=== PATIENT | female | born 1990 | race Native Hawaiian/Other Pacific Islander ===

== ENCOUNTER 2019-08-14 00:22 | Emergency (ER) | payer OTHER ==
[~2019-08-14] VITALS: Ht 160 cm; Wt 74.8 kg
[2019-08-14 02:05] VITALS: BP 129/86; TEMP 97.5
== END 2019-08-14 02:11 | disposition home or self-care (01) ==
LOC: ED 00:22
DX: J45.909 Unspecified asthma, uncomplicated (principal); J18.9 Pneumonia, unspecified organism; F17.210 Nicotine dependence, cigarettes, uncomplicated
CPT/HCPCS: 87502; 94664; 96372; 99283; J0696; J2930

== ENCOUNTER 2020-04-04 14:14 | Emergency (ER) | payer OTHER ==
[~2020-04-04] VITALS: Ht 160 cm; Wt 56.7 kg
[2020-04-04 14:27] VITALS: TEMP 98.7
[2020-04-04 15:17] VITALS: BP 118/70
== END 2020-04-04 15:18 | disposition home or self-care (01) ==
LOC: ED 14:14
DX: H60.8X1 Other otitis externa, right ear (principal)
CPT/HCPCS: 96372; 99282; J1885

== ENCOUNTER 2020-08-07 21:44 | Emergency (ER) | payer OTHER ==
[~2020-08-07] VITALS: Ht 160 cm; Wt 56.7 kg
[2020-08-07 23:29] VITALS: BP 117/58; TEMP 98.2
== END 2020-08-07 23:29 | disposition home or self-care (01) ==
LOC: ED 21:44
DX: J02.0 Streptococcal pharyngitis (principal); N39.0 Urinary tract infection, site not specified; F17.210 Nicotine dependence, cigarettes, uncomplicated
CPT/HCPCS: 81000; 87490; 87590; 87651; 99283

== ENCOUNTER 2020-09-15 13:45 | Emergency (ER) | payer OTHER ==
[~2020-09-15] VITALS: Ht 160 cm; Wt 56.7 kg
[2020-09-15 13:55] VITALS: TEMP 98.4
[2020-09-15 14:28] VITALS: BP 110/59
== END 2020-09-15 14:29 | disposition home or self-care (01) ==
LOC: ED 13:45
DX: H65.192 Other acute nonsuppurative otitis media, left ear (principal); F17.210 Nicotine dependence, cigarettes, uncomplicated
CPT/HCPCS: 99282

== ENCOUNTER 2020-09-18 22:56 | Emergency (ER) | payer OTHER ==
[~2020-09-18] VITALS: Ht 160 cm; Wt 54.4 kg
[2020-09-18 23:45] VITALS: BP 108/53; TEMP 98.6
== END 2020-09-18 23:45 | disposition home or self-care (01) ==
LOC: ED 22:56
DX: J30.89 Other allergic rhinitis (principal); R51.9 Headache, unspecified; F17.210 Nicotine dependence, cigarettes, uncomplicated
CPT/HCPCS: 99282

== ENCOUNTER 2020-10-03 23:51 | Emergency (ER) | payer OTHER ==
[~2020-10-03] VITALS: Ht 160 cm; Wt 54.4 kg
[2020-10-04 01:15] LABS: PLATELET COUNT 290 K/uL (152-353)
[2020-10-04 01:21] LABS: POTASSIUM 3.7 mmol/L (3.6-5.2)
[2020-10-04 03:15] VITALS: BP 102/66; TEMP 97.6
== END 2020-10-04 03:15 | disposition home or self-care (01) ==
LOC: ED 23:51
PROVIDERS: Emergency Medicine Emergency Medical Services
DX: A08.39 Other viral enteritis (principal)
CPT/HCPCS: 80053; 81000; 83690; 85027; 96360; 96375; 99284; J1885; J2405

== ENCOUNTER 2020-11-19 21:00 | Emergency (ER) | payer OTHER ==
[~2020-11-19] VITALS: Ht 160 cm; Wt 54.4 kg
[2020-11-19 22:12] VITALS: BP 156/100; TEMP 98
== END 2020-11-19 22:12 | disposition home or self-care (01) ==
LOC: ED 21:00
DX: M54.2 Cervicalgia (principal)
CPT/HCPCS: 99282

== ENCOUNTER 2020-12-08 22:13 | Emergency (ER) | payer OTHER ==
[~2020-12-08] VITALS: Ht 160 cm; Wt 51.7 kg
[2020-12-08 23:00] VITALS: BP 113/78; TEMP 98.2
== END 2020-12-08 23:47 | disposition home or self-care (01) ==
LOC: ED 22:13
DX: R05 Cough (principal); Z53.21 Procedure and treatment not carried out due to patient leaving prior to being seen by health care provider
CPT/HCPCS: 99281

== ENCOUNTER 2020-12-15 04:09 | Emergency (ER) | payer OTHER ==
[~2020-12-15] VITALS: Ht 160 cm; Wt 54.4 kg
[2020-12-15 05:49] LABS: PLATELET COUNT 261 K/uL (152-353)
[2020-12-15 05:58] LABS: POTASSIUM 4.4 mmol/L (3.6-5.2)
[2020-12-15 06:45] VITALS: BP 110/68; TEMP 98
== END 2020-12-15 06:45 | disposition home or self-care (01) ==
LOC: ED 04:09
PROVIDERS: Family Medicine
DX: K08.89 Other specified disorders of teeth and supporting structures (principal); K04.7 Periapical abscess without sinus; J06.9 Acute upper respiratory infection, unspecified; F17.210 Nicotine dependence, cigarettes, uncomplicated
CPT/HCPCS: 36415; 80053; 85027; 87502; 99283

== ENCOUNTER 2021-01-09 00:47 | Emergency (ER) | payer OTHER | END 2021-01-09 02:41 | disposition home or self-care (01) | LOC: ED 00:47 | DX: Z53.21 Procedure and treatment not carried out due to patient leaving prior to being seen by health care provider (principal); R51.9 Headache, unspecified; M54.2 Cervicalgia; R07.89 Other chest pain | CPT/HCPCS: 99281 ==

== ENCOUNTER 2021-01-17 04:38 | Emergency (ER) | payer OTHER | END 2021-01-17 06:05 | disposition home or self-care (01) | LOC: ED 04:38 | DX: M79.18 Myalgia, other site (principal); S40.021A Contusion of right upper arm, initial encounter; Y04.2XXA Assault by strike against or bumped into by another person, initial encounter; W22.8XXA Striking against or struck by other objects, initial encounter; Y92.89 Other specified places as the place of occurrence of the external cause | CPT/HCPCS: 96372; 99283; J1885 ==

== ENCOUNTER 2021-01-30 10:53 | Outpatient (CLI) | payer OTHER | END 2021-01-30 21:33 | disposition home or self-care (01) | LOC: RAD 10:53 | PROVIDERS: ATTEND Nurse Practitioner Family | DX: R07.89 Other chest pain (principal); R68.84 Jaw pain ==

== ENCOUNTER 2021-02-18 00:18 | Emergency (ER) | payer OTHER ==
[~2021-02-18] VITALS: Ht 160 cm; Wt 54.4 kg
[2021-02-18 01:24] LABS: POTASSIUM 3.5 mmol/L (3.6-5.2)
[2021-02-18 01:30] VITALS: BP 118/79; TEMP 98.4
[2021-02-18 01:37] LABS: PLATELET COUNT 286 K/uL (152-353)
== END 2021-02-18 01:30 | disposition home or self-care (01) ==
LOC: ED 00:18
PROVIDERS: Hospitalist
DX: J06.9 Acute upper respiratory infection, unspecified (principal); Z20.822 Contact with and (suspected) exposure to COVID-19; F17.210 Nicotine dependence, cigarettes, uncomplicated
CPT/HCPCS: 36415; 80048; 85027; 87635; 99283; U0003

== ENCOUNTER 2021-02-27 15:33 | Outpatient (CLI) | payer OTHER | END 2021-02-27 19:05 | disposition home or self-care (01) | LOC: RAD 15:33 | PROVIDERS: ATTEND Nurse Practitioner Family | DX: S99.922A Unspecified injury of left foot, initial encounter (principal) ==

== ENCOUNTER 2021-04-10 15:45 | Emergency (ER) | payer OTHER ==
[~2021-04-10] VITALS: Ht 160 cm; Wt 54.4 kg
[2021-04-10 15:50] VITALS: BP 104/66; TEMP 98.4
== END 2021-04-10 16:34 | disposition home or self-care (01) ==
LOC: ED 15:45
DX: Z53.21 Procedure and treatment not carried out due to patient leaving prior to being seen by health care provider (principal)
CPT/HCPCS: 99281

== ENCOUNTER 2021-04-11 06:29 | Emergency (ER) | payer OTHER ==
[~2021-04-11] VITALS: Ht 160 cm; Wt 54.4 kg
[2021-04-11 06:48] VITALS: TEMP 98.9
[2021-04-11 07:30] VITALS: BP 105/68
== END 2021-04-11 07:30 | disposition home or self-care (01) ==
LOC: ED 06:29
DX: J20.9 Acute bronchitis, unspecified (principal); F17.210 Nicotine dependence, cigarettes, uncomplicated
CPT/HCPCS: 99282

== ENCOUNTER 2021-07-24 21:43 | Emergency (ER) | payer OTHER ==
[~2021-07-24] VITALS: Ht 160 cm; Wt 56.7 kg
[2021-07-24 23:20] VITALS: BP 120/65; TEMP 98
== END 2021-07-24 23:25 | disposition home or self-care (01) ==
LOC: ED 21:43
DX: J06.9 Acute upper respiratory infection, unspecified (principal); Z20.822 Contact with and (suspected) exposure to COVID-19; F17.210 Nicotine dependence, cigarettes, uncomplicated
CPT/HCPCS: 87502; 87635; 87651; 99282; 99283; U0003

== ENCOUNTER 2021-08-11 06:33 | Emergency (ER) | payer OTHER ==
[~2021-08-11] VITALS: Ht 160 cm; Wt 61.2 kg
[2021-08-11 08:04] VITALS: TEMP 98.5
[2021-08-11 08:51] LABS: PLATELET COUNT 240 K/uL (152-353)
[2021-08-11 09:01] LABS: POTASSIUM 3.7 mmol/L (3.6-5.2)
[2021-08-11 10:22] VITALS: BP 118/65
== END 2021-08-11 10:22 | disposition home or self-care (01) ==
LOC: ED 06:33
PROVIDERS: Emergency Medicine Emergency Medical Services
DX: K29.70 Gastritis, unspecified, without bleeding (principal)
CPT/HCPCS: 36415; 80053; 83690; 85027; 96360; 96375; 99284; J2405; J3490

== ENCOUNTER 2022-01-11 22:06 | Emergency (ER) | payer OTHER ==
[~2022-01-11] VITALS: Ht 160 cm; Wt 69.9 kg
[2022-01-11 23:42] VITALS: BP 119/78; TEMP 98.1
== END 2022-01-11 23:42 | disposition home or self-care (01) ==
LOC: ED 22:06
DX: R30.0 Dysuria (principal); M54.59 Other low back pain; M53.3 Sacrococcygeal disorders, not elsewhere classified
CPT/HCPCS: 81002; 96372; 99283; J1885

== ENCOUNTER 2022-03-17 06:49 | Emergency (ER) | payer OTHER ==
[~2022-03-17] VITALS: Ht 160 cm; Wt 69.9 kg
[2022-03-17 06:53] VITALS: BP 110/72; TEMP 97
== END 2022-03-17 07:34 | disposition home or self-care (01) ==
LOC: ED 06:49
DX: J32.8 Other chronic sinusitis (principal); J45.901 Unspecified asthma with (acute) exacerbation; F17.210 Nicotine dependence, cigarettes, uncomplicated
CPT/HCPCS: 99283

== ENCOUNTER 2022-03-31 04:13 | Emergency (ER) | payer OTHER ==
[~2022-03-31] VITALS: Ht 160 cm; Wt 72.6 kg
[2022-03-31 04:13] VITALS: BP 135/78; TEMP 98.4
[2022-03-31 04:45] LABS: PLATELET COUNT 304 K/uL (152-353)
[2022-03-31 04:47] LABS: POTASSIUM 3.2 mmol/L (3.6-5.2); SODIUM 138 mmol/L (136-145)
[2022-03-31 06:26] LABS: PARTIAL THROMBOPLASTIN TIME 28.4 SECONDS (24.5-33.6)
== END 2022-03-31 07:57 | disposition home or self-care (01) ==
LOC: ED 04:13
PROVIDERS: Family Medicine
DX: D72.828 Other elevated white blood cell count (principal); R07.89 Other chest pain; R05.8 Other specified cough
CPT/HCPCS: 36415; 80053; 80307; 81002; 82150; 82550; 83690; 84484; 85027; 85610; 85730; 93005; 96361; 96365; 96366; 96375; 99284; J0696; J1885

== ENCOUNTER 2022-07-23 21:15 | Emergency (ER) | payer OTHER ==
[~2022-07-23] VITALS: Ht 160 cm; Wt 72.6 kg
[2022-07-23 21:30] VITALS: BP 110/74; TEMP 98.8
[2022-07-23 22:12] LABS: PLATELET COUNT 317 K/uL (152-353)
[2022-07-23 22:26] LABS: POTASSIUM 4.4 mmol/L (3.6-5.2)
== END 2022-07-23 23:30 | disposition home or self-care (01) ==
LOC: ED 21:15
PROVIDERS: Emergency Medicine Emergency Medical Services
DX: R10.84 Generalized abdominal pain (principal)
CPT/HCPCS: 80053; 81002; 81025; 85027; 96360; 96374; 96376; 99284; J1885; J2405; Q9963

== ENCOUNTER 2022-08-11 13:21 | Outpatient (CLI) | payer OTHER | END 2022-08-11 19:25 | disposition home or self-care (01) | LOC: RAD 13:21 | PROVIDERS: ATTEND Physician Assistant | DX: M79.605 Pain in left leg (principal) ==

== ENCOUNTER 2022-08-27 08:55 | Outpatient (CLI) | payer OTHER | END 2022-08-27 19:22 | disposition home or self-care (01) | LOC: MRI 08:55 | PROVIDERS: ATTEND Physician Assistant | DX: M25.562 Pain in left knee (principal); M54.59 Other low back pain; M25.552 Pain in left hip ==

== ENCOUNTER 2022-10-12 01:08 | Emergency (ER) | payer OTHER ==
[~2022-10-12] VITALS: Ht 160 cm; Wt 72.6 kg
[2022-10-12 01:10] VITALS: BP 147/77; TEMP 98.9
== END 2022-10-12 01:45 | disposition home or self-care (01) ==
LOC: ED 01:08
DX: H92.01 Otalgia, right ear (principal)
CPT/HCPCS: 99281

== ENCOUNTER 2022-11-12 22:09 | Emergency (ER) | payer OTHER ==
[~2022-11-12] VITALS: Ht 160 cm; Wt 63.5 kg
[2022-11-12 22:20] VITALS: BP 127/68; TEMP 98.2
== END 2022-11-13 00:38 | disposition home or self-care (01) ==
LOC: ED 22:09
DX: J45.998 Other asthma (principal); Z72.0 Tobacco use
CPT/HCPCS: 87502; 87635; 87651; 94664; 99282; U0003

== ENCOUNTER 2022-11-15 21:59 | Emergency (ER) | payer OTHER ==
[~2022-11-15] VITALS: Ht 160 cm; Wt 63.5 kg
[2022-11-15 22:00] VITALS: BP 129/81; TEMP 98.2
== END 2022-11-15 22:10 | disposition home or self-care (01) ==
LOC: ED 21:59
DX: Z53.21 Procedure and treatment not carried out due to patient leaving prior to being seen by health care provider (principal)
CPT/HCPCS: 99281